=== PATIENT | male | born 1965 | race Caucasian/White ===

== ENCOUNTER 2025-10-07 22:12 | Emergency (ER) | payer OTHER ==
[~2025-10-07] VITALS: Ht 172.7 cm; Wt 130.0 kg
[2025-10-07 22:22] VITALS: TEMP 98.1
[2025-10-07 23:17] LABS: PLATELET COUNT (AUTO) 284 K/uL (150-450); RED BLOOD CELL COUNT(AUTO) 5.24 MIL/uL (4.50-5.90); RED CELL DISTRIBUTION WIDTH 14.3 % (11.5-14.5); WHITE BLOOD COUNT (AUTO) 8.7 K/uL (4.5-11.0)
[2025-10-07 23:20] LABS: CALCIUM, TOTAL 8.5 mg/dL (8.8-10.5); CREATININE 1.01 mg/dL (0.60-1.30); GLOMERULAR FILTR. RATE CALC > 60 mL/min (>60); GLUCOSE,RANDOM 133 mg/dL (70-110); SODIUM SERUM 138 mmol/L (136-145); UREA NITROGEN, BLOOD 14 mg/dL (7-18)
[2025-10-07 23:28] LABS: TROPONIN I-HIGH SENSITIVITY 10 ng/L (<76)
[2025-10-08 00:18] VITALS: BP 154/100; PULSE 79; RESP 18; O2SAT 98
== END 2025-10-08 01:23 | disposition home or self-care (01) ==
LOC: EMS 22:17
DX: I10 Essential (primary) hypertension (principal); R06.02 Shortness of breath; R09.81 Nasal congestion
CPT/HCPCS: 71045; 80048; 83880; 84484; 85025; 93005; 99285; 36415-L1; 36415-TC